=== PATIENT | male | born 1995 | race African-American/Black ===

== ENCOUNTER 2021-12-17 13:31 | Outpatient (CLI) | payer BC, SELFPAY ==
--- NOTE | ~2021-12-17 | MR_ITS ---
EXAMINATION: MR knee RT wo con DATE: 12/17/2021 14:23 INDICATION: Tear of articular cartilage of the knee as current injury. TECHNIQUE: Magnetic resonance imaging (MRI) of the right knee was performed without intravenous contr ast. Sequences included axial PD-weighted FS FSE, coronal PD-weighted FSE and PD-weighted FS FSE, sag ittal PD-weighted FSE, and sagittal T2-weighted FS FSE. COMPARISON: None. FINDINGS: Medial compartment: Medial meniscus is normal. Medial compartment cartilage is normal. Lateral compartment: There is an upper surface horizontal tear of body of lateral meniscus. There is full-thickness cartil age loss of femoral condyle involving the central, lateral, and posterior articular surface with an i ntra-articular osteophyte filling much of the cartilage gap. There is deep partial thickness cartilag e loss of tibial condyle posteriorly with mild subchondral edema-like marrow signal intensity. Patellofemoral compartment: Patellar cartilage is normal. There is shallow partial-thickness cartilage loss of medial trochlea. Ligaments and tendons: The anterior and posterior cruciate ligaments are normal. Medial collateral ligament is normal. There are changes of prior sprain of fibular collateral ligament characterized by increased signal intensi ty proximally. There is mild patellar tendinopathy. Fluid: There is a small knee joint effusion. There is trace fluid in a Willard's cyst. There is mild superfici al infrapatellar bursitis. IMPRESSION: 1. Severe chondrosis of lateral compartment and mild chondrosis of patellofemoral compartment. 2. Tear of lateral meniscus. 3. Small knee joint effusion. Reviewed, dictated and finalized at location A. IMPRESSION: 1. Severe chondrosis of lateral compartment and mild chondrosis of patellofemor al compartment. 2. Tear of lateral meniscus. 3. Small knee joint effusion.
== END 2021-12-17 13:32 | disposition home or self-care (01) ==
PROVIDERS: Visit Provider Orthopaedic Surgery
DX: S83.281A Other tear of lateral meniscus, current injury, right knee, initial encounter (principal); X58.XXXA Exposure to other specified factors, initial encounter; M25.462 Effusion, left knee
CPT/HCPCS: 73721